=== PATIENT | male | born 1955 | race American Indian/Alaskan Native ===

== ENCOUNTER 2020-12-27 06:27 | Day surgery (SDC) | payer MEDICARE ==
[2020-12-27] MEDS ORDERED: ASPIRIN EC 325 MG TAB PO ONE (06:35)
[2020-12-27] MEDS ORDERED: SODIUM CHLORIDE 0.9% 500 ML 500 ML IV SCH (07:00)
[2020-12-27 07:06] LABS: Basophils % (Auto) 0.5 % (0.0-1.8); Eosinophils # (Auto) 0.3 K/mm3 (0.0-0.4); Hematocrit 40.3 % (35.5-45.6); Hemoglobin 12.7 gm/dl (11.8-15.2); Lymphocytes # (Auto) 2.2 K/mm3 (1.2-5.4); Lymphocytes % (Auto) 35.6 % (13.4-35.0); Mean Corpuscular HGB Conc 32 % (32-34); Mean Corpuscular Volume 89 fl (84-94); Monocytes # (Auto) 0.6 K/mm3 (0.0-0.8); Monocytes % (Auto) 9.4 % (0.0-7.3); Platelet Count 219 K/mm3 (140-440); Red Cell Distribution Width 14.6 % (13.2-15.2)
[2020-12-27 07:17] LABS: INR 0.92 (0.87-1.13)
[2020-12-27 08:05] LABS: BUN/Creatinine Ratio 16; Blood Urea Nitrogen 14 mg/dL (9-20); Calcium 9.4 mg/dL (8.4-10.2); Hemolysis Index 4
[2020-12-27] MEDS ORDERED: HEPARIN/NS 5000 UNIT/500ML 1,000 ML IR ONE (08:24)
[2020-12-27] MEDS ORDERED: NITROGLYCERIN SYRINGE 3 ML ONE (08:24)
[2020-12-27] MEDS ORDERED: HEPARIN 10,000 UNITS/10 ML VIAL ONE (08:24)
[2020-12-27] MEDS ORDERED: LIDOCAINE (2%) 20 MG/1 ML VIAL 20 ML MDV INFILTRATI ONE ×2 (08:24→09:06)
[2020-12-27] MEDS ORDERED: VERAPAMIL 5 MG/2 ML INJ ONE (08:24)
[2020-12-27] MEDS ORDERED: MIDAZOLAM 2 MG/2 ML INJ ONE (09:00)
[2020-12-27] MEDS ORDERED: fentaNYL 100 MCG/2 ML INJ ONE (09:00)
[2020-12-27] MEDS ORDERED: fentaNYL 100 MCG/2 ML INJ IV ONE (09:02)
[2020-12-27] MEDS ORDERED: MIDAZOLAM 2 MG/2 ML INJ IV ONE (09:06)
[2020-12-27] MEDS ORDERED: NITROGLYCERIN 600 MCG/3 ML SYRINGE UD ONE (09:07)
[2020-12-27] MEDS ORDERED: HEPARIN 10,000 UNITS/10 ML VIAL IV ONE (09:07)
[2020-12-27] MEDS ORDERED: HEPARIN/NS 5000 UNITS/500 ML BAG (CATH LAB ONLY) IR ONE ×2 (09:10)
--- NOTE | 2020-12-27 09:51 | Cardiac Catherization Report ---
DATE OF PROCEDURE: 12/27/2020 CARDIAC CATHETERIZATION INDICATIONS FOR PROCEDURE: The patient is a pleasant 65-year-old -[place] gentleman with dyspnea on exertion, abnormal stress test with questionable apical ischemia, referred here for left heart catheterization. Risks, benefits, potential alternatives explained at length prior to obtaining informed consent. PROCEDURE IN DETAIL: The patient was brought to animal laboratory helper in a postabsorptive state, prepped and draped in sterile fashion. Carrillo's test in right hand is normal. 2 mL of 2% lidocaine used to anesthetize the right wrist. A standard 6-[place] hydrophilic sheath used to cannulate the right radial artery via modified Seldinger technique. All exchanges performed to exchange a J-tip guidewire. JL3.5 catheter was used to engage the left main. No dampening or ventricularization. Cineangiography performed in all projections. JR4 catheter used to cross the aortic valve under fluoroscopic guidance. Left ventriculography performed in 30-degree JIANG and 30-degree MACANESE projections via hand injections, catheter flushed. Catheter used to engage the right coronary. No dampening or ventricularization. Cineangiography performed in all projections. Next, catheter removed from the body over wire, sheath removed. Manual pressure used to achieve hemostasis. DATA: Aortic pressure is 120/70, LV pressure is 120, LVEDP of 15 mmHg. Left ventriculography reveals normal systolic performance, estimated ejection fraction of 50-55%. No evidence of aortic stenosis. CORONARY ANATOMY: This is a left dominant system. Right coronary small, nondominant. Left main without significant disease, it bifurcates in left anterior descending, left circumflex. Left circumflex is moderate sized vessel, courses AV groove, left PDA is noted. No significant disease. LAD is a moderate sized vessel, courses anterior intraventricular groove, wraps around the apex. There are scattered luminal irregularities and some calcification in the proximal LAD with a maximal narrowing of 10-20%. At this point, the procedure was stopped, I directly supervised the administration of moderate sedation with fentanyl and Versed from 9:06 a.m. to 9:20 a.m. There were no immediate complications. CONCLUSIONS: 1. Mild nonobstructive coronary artery disease in this left dominant system. 2. Normal left ventricular systolic performance, estimated ejection fraction of 50-55%. 3. No evidence of aortic stenosis. 4. Normal LVEDP. The patient is doing well. No symptoms. We will have him follow up with us in the office. Discussed with his daughter, Jayleen Sarita Canchola, who is a pediatric ophthalmologist in [place]. Also discussed with his and obviously the patient himself. The patient is clinically stable. Follow up with me in the office. Aggressive primary and secondary prevention measures discussed. Standard radial care. TID: [id number] RECEIPT: [id number] SBM/NIS
--- NOTE | 2020-12-27 10:28 | Short Stay Summary ---
Short Stay Documentation Date of service: 12/27/20 - History H&P: obtained from office - Allergies and Medications Current Medications: Allergies No Known Allergies Allergy (Unverified 12/27/20 06:33) Home Medications Medication Instructions Recorded Confirmed Last Taken Type Aspirin EC [Halfprin EC] 81 mg PO QDAY 12/27/20 12/27/20 12/24/20 History Atorvastatin [Lipitor Tab] 80 mg PO QHS 12/27/20 12/27/20 12/24/20 History glyBURIDE/METFORMIN HCL 15 - 500 each PO DAILY 12/27/20 12/27/20 12/24/20 History [Glyburide-Metformin 5-500 mg] Active Medications Sodium Chloride (Nacl 0.9% 500 Ml) 500 mls @ 50 mls/hr IV DIRECT [place] Stop: 12/27/20 16:59 Last Admin: 12/27/20 07:18 Dose: 50 mls/hr Documented by: - Physical exam Integumentary: other (dressing, clean dry and intact. No bleeding or hematoma) - Brief post op/procedure progress note Date of procedure: 12/27/20 Pre-op diagnosis: abnormal stress test Post-op diagnosis: other (mild non obstructive CAD) Anesthesia: local Estimated blood loss: minimal - Disposition Condition at discharge: Good Disposition: 01 HOME / SELF CARE / HOMELESS Short Stay Discharge Plan Activity: advance as tolerated Diet: low fat, low cholesterol, low salt Wound: keep clean and dry, per your surgeon's advice Follow up with: EDI LA MD [Primary Care Provider] - 7 Days OLEG PARRA MD [Staff Physician] - 01/20/21 2:45 pm (Patient has follow up appoinmtnet with Dr Parra, [facility], on 01/20/2021 at 2:45pm)
[2020-12-27 12:54] VITALS: BP 153/94
--- NOTE | 2020-12-28 08:40 | Electrocardiograph Report ---
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
== END 2020-12-27 06:28 | disposition home or self-care (01) ==
LOC: CATHLABREC 06:27
PROVIDERS: ATTEND Internal Medicine
DX: R94.39 Abnormal result of other cardiovascular function study (principal); I25.10 Atherosclerotic heart disease of native coronary artery without angina pectoris; E11.9 Type 2 diabetes mellitus without complications; E78.5 Hyperlipidemia, unspecified; Z79.899 Other long term (current) drug therapy; Z98.890 Other specified postprocedural states
CPT/HCPCS: 36415; 80048; 82962; 85025; 85610; 85730; 93005; 93458; 99156; C1894; J1644; J1815; J2250; J3010; J3490; J7040; Q9967